=== PATIENT | female | born 1955 | race Caucasian/White ===

== ENCOUNTER 2017-12-06 07:06 | Emergency (ER) | payer OTHER ==
[~2017-12-06] VITALS: Ht 165.1 cm; Wt 77.1 kg
[~2017-12-06 07:06] MED LIST: ATENOLOL-CHLORT1 TA2 PO
== END 2017-12-06 10:17 | disposition home or self-care (01) ==
LOC: ER 07:06
DX: M54.5 Low back pain (principal)

== ENCOUNTER 2017-12-28 20:21 | Emergency (ER) | payer OTHER ==
[~2017-12-28] VITALS: Ht 167.6 cm; Wt 79.4 kg
[2017-12-29] MEDS ORDERED: BUTALB-ACETAMI1 EACH PO (05:46)
== END 2017-12-29 05:45 | disposition home or self-care (01) ==
LOC: ER 20:21
DX: G44.209 Tension-type headache, unspecified, not intractable (principal)

== ENCOUNTER 2022-05-07 22:57 | Emergency (ER) | payer OTHER ==
[~2022-05-07] VITALS: Ht 167.6 cm; Wt 77.1 kg
[~2022-05-07 22:57] MED LIST changes: +BUTALB-ACETAMI1 EACH PO
[2022-05-07] MEDS ORDERED: BUTALB-ASPIRIN1 EACH (23:17)
[2022-05-07] MEDS ORDERED: DEXILANT60 MG (23:17)
== END 2022-05-08 13:25 | disposition home or self-care (01) ==
LOC: ER 22:57
DX: R14.0 Abdominal distension (gaseous) (principal); Z91.013 Allergy to seafood; Z88.8 Allergy status to other drugs, medicaments and biological substances; E03.9 Hypothyroidism, unspecified; I10 Essential (primary) hypertension; N20.0 Calculus of kidney